=== PATIENT | female | born 1960 | race Caucasian/White ===

== ENCOUNTER 2022-12-25 23:44 | Inpatient (IN) | payer OTHER ==
[2022-12-25] MEDS ORDERED: AMIODARONE 50 MG/ML 3 ML VIAL IV ONE (23:46)
[2022-12-25] MEDS ORDERED: SODIUM BICARB 8.4% 50 ML SYR (1 MEQ/ML) ONE (23:46)
[2022-12-25] MEDS ORDERED: EPINEPHrine 10 ML SYRINGE (0.1 MG/ML) ONE (23:46)
[2022-12-25] MEDS ORDERED: METOPROLOL TARTRATE 5 MG/5 ML VIAL IVP ONE (23:46)
[2022-12-25] MEDS ORDERED: LIDOCAINE 2% SYG (PF) 100 MG/5 ML ONE (23:46)
[2022-12-25] MEDS ORDERED: DEXTROSE 5% IN WATER 50 ML BAG ONE (23:46)
[2022-12-25 23:59] LABS: Glucose,Whole Blood 219 mg/dL (70-110)
[2022-12-26] MEDS ORDERED: DEXTROSE 5% IN WATER 250 ML with AMIODARONE 300 MG IV ONE (00:13)
[2022-12-26] MEDS ORDERED: SODIUM CHLORIDE 0.9% 1,000 ML IV STA (00:14)
[2022-12-26] MEDS ORDERED: HEPARIN SODIUM 1,000 UN/ML (10ML VL) IV ONE ×2 (00:22→01:11)
[2022-12-26] MEDS ORDERED: ASPIRIN 300 MG SUPP RECTAL STA (00:22)
[2022-12-26] MEDS ORDERED: NITROGLYCERIN SL TABS 0.4 MG TAB SUBLINGUAL PRN ×2 (00:25→02:08)
--- NOTE | 2022-12-26 00:30 | ED ---
CPR HPI - General Stated Complaint: Chest pain Source: RN notes reviewed, old records reviewed Limitations: no limitations - History of Present Illness Initial Comments: This is a 62-year-old female to the emergency department for evaluation today. Patient's brought in for evaluation of cardiac arrest, patient walked in the fro nt of the hospital stay she is having heart attack and then became unresponsive patient is found to have asystolic arrest followed by ventricular fibrillation arrest. MD Complaint: found unresponsive, stopped breathing, collapsed during activity (Patient was walking into the emergency department saying she was having a heart attack) -: minute(s) Place: home (Chest pain began at home), other (Arrest happened in emergency d epartment) Bystander CPR Performed: Yes AED Applied by Bystander/Bottoming Machine Operator: Yes Shock Advised: Yes Number of Shocks Delivered: >3 Initial Findings in the Field: unresponsive, agonal, no pulse, VTACH/VFIB ROSC in the Field: No Associated Injuries: No Associated Symptoms: chest pain (Chest pain while walking into the emergency department) Treatments Prior to Arrival: other (0) - Related Data Home Medications Medication Instructions Recorded Confirmed No Known Home Medications 12/26/22 12/26/22 Allergies Allergy/AdvReac Type Severity Reaction Status Date / Time Unable to Assess Allergy Verified 12/26/22 00:31 Review of Systems ROS Statement: Those systems with pertinent positive or pertinent negative responses have been documented in the HPI. ROS Other: All systems not noted in ROS Statement are negative. General Exam General appearance: alert, in no apparent distress Head exam: Present: atraumatic, normocephalic, normal inspection Eye exam: Present: normal appearance, PERRL, EOMI. Absent: scleral icterus, conjunctival injection, periorbital swelling ENT exam: Present: normal exam, mucous membranes moist Neck exam: Present: normal inspection. Absent: tenderness, meningismus, lymphadenopathy Respiratory exam: Present: normal lung sounds bilaterally. Absent: respiratory distress, wheezes, rales, rhonchi, stridor Cardiovascular Exam: Present: regular rate, normal rhythm, normal heart sounds. Absent: systolic murmur, diastolic murmur, rubs, gallop, clicks GI/Abdominal exam: Present: soft, normal bowel sounds. Absent: distended, tenderness, guarding, rebound, rigid Extremities exam: Present: normal inspection, full ROM, normal capillary refill. Absent: tenderness, pedal edema, joint swelling, calf tenderness Back exam: Present: normal inspection Neurological exam: Present: alert, oriented X3, CN II-XII intact Psychiatric exam: Present: normal affect, normal mood Skin exam: Present: warm, dry, intact, normal color. Absent: rash Course Vital Signs 12/25/22 12/26/22 12/26/22 23:46 00:30 00:32 Pulse Rate 102 H Respiratory 18 Rate Blood Pressure 140/71 O2 Sat by Pulse 97 Oximetry Fraction of 100 100 Inspired Oxygen (FIO2) - Reevaluation(s) Reevaluation #1: 12/26/22 00:27 Medical records reviewed 12/26/22 00:28 STEMI was paged on initial return of normal rhythm found to have ST elevation after return of spontaneous circulation Reevaluation #2: 12/26/22 00:29 Patient symptoms remain significant, unresponsive Reevaluation #3: 12/26/22 00:29 did speak with patient's family regarding prognosis and significant illness Reevaluation #4: 12/26/22 00:27 Was pt. sent in by a medical professional or institution (, PA, SATURATOR TENDER, urgent care, hospital, or care home...) When possible be specific @ -no Did you speak to anyone other than the patient for history (EMS, parent, family, police, friend...)? What history was obtained from this source @ -no Did you review nursing and triage notes (agree or disagree)? Why? @ -agree Are old charts reviewed (outside hosp., previous admission, EMS record, old EKG, old radiological studies, urgent care reports/EKG's, care home records)? Report findings @ -yes Differential Diagnosis (chest pain, altered mental status, abdominal pain women, abdominal pain men, vaginal bleeding, weakness, fever, dyspnea, syncope, headache, dizziness, GI bleed, back pain, seizure, CVA, palpatations, mental hea lth, musculoskeletal)? @ -prior EKG interpreted by me (3pts min.). @ -yes X-rays interpreted by me (1pt min.). @ -yes CT interpreted by me (1pt min.). @ -no U/S interpreted by me (1pt. min.). @ -no What testing was considered but not performed or refused? (CT, X-rays, U/S, labs)? Why? @ -none What meds were considered but not given or refused? Why? @ -none Did you discuss the management of the patient with other professionals (professionals i.e. , PA, SATURATOR TENDER, lab, RT, psych nurse, home health care social worker, change management expert, teacher, strike operations officer, case management manager)? Give summary @ -no Was smoking cessation discussed for >3mins.? @ -no Was critical care preformed (if so, how long)? @ -no Were there social determinants of health that impacted care today? How? (Homelessness, low income, unemployed, alcoholism, drug addiction, transportation, low edu. Level, literacy, decrease access to med. care, mcc, r ehab)? @ -none Was there de-escalation of care discussed even if they declined (Discuss DNR or withdrawal of care, Hospice)? DNR status @ -no What co-morbidities impacted this encounter? (DM, HTN, Smoking, COPD, CAD, Cancer, CVA, ARF, Chemo, Hep., AIDS, mental health diagnosis, sleep apnea, morbid obesity)? @ -none Was patient admitted / discharged? Hospital course, mention meds given and route , prescriptions, significant lab abnormalities, going to OR and other pertinent info. @ - Undiagnosed new problem with uncertain prognosis? @ -no Drug Therapy requiring intensive monitoring for toxicity (Heparin, Nitro, Insulin, Cardizem)? @ -no Were any procedures done? @ -no Diagnosis/symptom? @ - Acute, or Chronic, or Acute on Chronic? @ -Acute Uncomplicated (without systemic symptoms) or Complicated (systemic symptoms)? @ -Complicated Side effects of treatment? @ -no Exacerbation, Progression, or Severe Exacerbation? @ -exacerbation Poses a threat to life or bodily function? How? (Chest pain, USA, HI, pneumonia, PE, COPD, DKA, ARF, appy, cholecystitis, CVA, Diverticulitis, Homicidal, Suicidal, threat to staff... and all critical care pts) @ -yes Reevaluation #5: 12/26/22 00:29 Differential Chest Pain: Stable Angina, Unstable Angina, STEMI, NSTEMI Aortic Dissection, Pneumothorax, Musculoskeletal, Esophageal Spasm GERD, Cholecystitis, Pancreatitis, Zoster, this is not meant to be an all-inclusive list. - Consultations Consultation #1: Spoke with [facility] were agrees to admit this patient Medical Decision Making - Medical Decision Making 62 female to the emergency department for evaluation patient came into the hospital with chest pain and was found to have sick cardiac arrest on arrival. Patient became unresponsive while checking in, patient was found be in ventricular fibrillation persistent requiring multiple defibrillations medication. Patient had return of spontaneous circulation with ST elevated HI on EKG - Lab Data Result diagrams: 12/26/22 14:25 12/26/22 10:55 Lab Results 12/25/22 Range/Units 23:59 POC Glucose (mg/dL) 219 H (70-110) mg/dL POC Glu Sales Outfitter ID Abelardo Muniz - EKG Data -: EKG Interpreted by Me (EKG shows ST elevation A. fib with RVR 122 QRS 157 QTC 316) Rate: tachycardia Interpretation: acute HI - Radiology Data Radiology results: report reviewed (Chest x-rays positive for ET tube placement), image reviewed Critical Care Time Critical Care Time: Yes Total Critical Care Time: 60 Disposition Clinical Impression: Cardiopulmonary arrest with successful resuscitation, Ventricular fibrillation, STEMI (ST elevation myocardial infarction) Disposition: ADMITTED IP TO THIS HOSP Condition: Critical Is patient prescribed a controlled substance at d/c from ED?: No Time of Disposition: 00:30
[2022-12-26] MEDS ORDERED: MIDAZOLAM 1 MG/ML 5 ML VIAL IV STA (00:40)
[2022-12-26 00:47] LABS: Basophils % (A) 0 %; Eosinophils # (A) 0.1 k/uL (0-0.7); Eosinophils % (A) 1 %; HGB 13.1 gm/dL (11.4-16.0); Hypochromasia Marked; Lymphocytes # (A) 4.9 k/uL (1.0-4.8); Lymphocytes % (A) 41 %; MCH 27.6 pg (25.0-35.0); MCHC 29.7 g/dL (31.0-37.0); Mean Platelet Volume 8.6; Monocytes # (A) 0.4 k/uL (0-1.0); Monocytes % (A) 3 %; Neutrophils # (A) 6.3 k/uL (1.3-7.7); Neutrophils % (A) 52 %; Platelet Count 197 k/uL (150-450); RBC 4.74 m/uL (3.80-5.40); RDW 12.5 % (11.5-15.5); WBC 12.1 k/uL (3.8-10.6)
[2022-12-26 00:54] LABS: ALT 27 U/L (4-34); AST 35 U/L (14-36); African American GFR (CKD) >90 (>60 ml/min/1.73 sqM); Albumin 2.6 g/dL (3.5-5.0); Alkaline Phosphatase 124 U/L (38-126); Anion Gap 18 mmol/L; Blood Urea Nitrogen 13 mg/dL (7-17); Calcium 10.9 mg/dL (8.4-10.2); Carbon Dioxide 15 mmol/L (22-30); Chloride 107 mmol/L (98-107); Glucose 348 mg/dL (74-99); Magnesium 3.3 mg/dL (1.6-2.3); Non-African American GFR(CKD) >90 (>60 ml/min/1.73 sqM); Sodium 140 mmol/L (137-145); Total Bilirubin 0.6 mg/dL (0.2-1.3); Total Protein 4.7 g/dL (6.3-8.2)
--- NOTE | 2022-12-26 00:57 | XR ---
EXAM: XR Chest, 1 View CLINICAL HISTORY: ITS.REASON XR Reason: cp TECHNIQUE: Frontal view of the chest. COMPARISON: No relevant prior studies available. FINDINGS: Endotracheal tube with seen with its tip above the eda. Esophageal catheter is seen with its tip in the gastric fundus. This is only barely beyond the gastroesophageal junction and could be advanced several centimeters. Diffuse bilateral interstitial infiltrates left slightly greater than right with cardiomegaly. Findings are most consistent with multifocal pneumonia. IMPRESSION: Multifocal pneumonia.
[2022-12-26 00:58] LABS: INR 1.1 (<1.2); Partial Thromboplastin Time 28.7 sec (22.0-30.0); Prothrombin Time 11.8 sec (10.0-12.5)
[2022-12-26 01:01] LABS: Phosphorus 9.1 mg/dL (2.5-4.5); Potassium 2.6 mmol/L (3.5-5.1)
[2022-12-26 01:02] LABS: NT-Pro-B-Type Natriuretic Pept 2600 pg/mL
[2022-12-26] MEDS ORDERED: SODIUM CHLORIDE 0.9% 500 ML 500 ML IV ONE (01:08)
[2022-12-26] MEDS ORDERED: LIDOCAINE 1% INJ 10MG/ML (30 ML VIAL-PF) SQ ONE (01:08)
[2022-12-26] MEDS ORDERED: POTASSIUM CHLORIDE 20 MEQ in WATER FOR INJECTION 1 100ML.BAG IVPB STA (01:09)
[2022-12-26] MEDS ORDERED: ATROPINE SULFATE 0.1 MG/ML 10ML SYRINGE IV ONE (01:09)
[2022-12-26] MEDS ORDERED: PRASUGREL 10 MG TAB PO ONE (01:10)
[2022-12-26] MEDS ORDERED: HEPARIN SODIUM 1,000 UN/ML (10ML VL) ONE (01:15)
[2022-12-26] MEDS ORDERED: AMIODARONE 360 MG in DEXTROSE 5% IN WATER 200 ML IV ONE ×2 (01:20)
[2022-12-26] MEDS ORDERED: PRASUGREL 10 MG TAB ONE ×2 (01:23→01:34)
--- NOTE | 2022-12-26 01:53 | P.CRDCN ---
History of Present Illness Consult date: 12/26/22 History of present illness: History of Present Illness: The patient is a 62-year-old female who presented to the emergency room brought in by her , having chest discomfort on arrival she had a cardiac arrest in the emergency room with recurrent ventricular tachycardia and ventricular fibrillation requiring multiple shocks and prolonged CPR. Subsequently rhythm was obtained and there was evidence of ST segment elevation inferiorly. The patient was intubated. She was evaluated in the cardiac catheterization laboratory. After her cardiac cath and according to the family she has a history of dyspnea on exertion but no cardiac history. She has no history of chest discomfort in the past. She has no history of hypertension, hyperlipidemia or diabetes. She is a smoker and stopped 2 months ago. She takes no medication. There is no history of alcohol intake. No other history is available from the family Medications: Non- Review of Systems: Could not be obtained Physical Examination: 62-year-old female intubated ,Blood pressure 80/70, Heart rate 70 Head: Normocephalic. Eyes: Sclerae nonicteric. Neck: Good carotid upstroke, no bruit, no jugular venous distention. Lungs: Clear to auscultation. Heart: Regular rate and rhythm, S1-S2, no S3, no rub. No murmur. Abdomen: Soft , positive bowel sounds no organomegaly. Extremities: No edema, intact distal pulses. Labs: WBC 12.1, hemoglobin 13.1, potassium 2.6, BUN 13, creatinine 0.62. Blood sugar 348. Troponin 0.318, NT proBNP 2600, chest x-ray suggestive of congestion as well as possible pneumonia, possible aspiration pneumonia EKG: Atrial fibrillation, with ST segment elevation in leads [address] segment depression Impression: 1. Cardiac arrest with recurrent ventricular tachycardia and ventricular fibrillation in the setting of myocardial infarction 2. Inferior wall myocardial infarction 3. Prior history of smoking 4. Possible aspiration pneumonia 5. Hypokalemia Plan: 1. I Have recommended to proceed with emergent cardiac catheterization 2. I discussed her case with her family after the procedure, the prognosis remains guarded. The possibility of anoxic encephalopathy cannot be excluded as well as aspiration pneumonia. 3. Obtain an echocardiogram with Doppler 4. Depending on her progress further recommendations will be made 5. Thank you for this consult we will follow with you Medications and Allergies Allergies Allergy/AdvReac Type Severity Reaction Status Date / Time Unable to Assess Allergy Verified 12/26/22 00:31 Physical Exam Vitals: Vital Signs Pulse Resp BP Pulse Ox FiO2 12/26/22 00:32 100 12/26/22 00:30 100 12/25/22 23:46 102 H 18 140/71 97 Intake and Output 12/25/22 12/25/22 12/26/22 14:59 22:59 05:59 Other: Weight 81.647 kg Results 12/26/22 00:33 12/26/22 00:33 Cardiac Enzymes 12/26/22 12/26/22 Range/Units 00:33 00:33 AST 35 (14-36) U/L Troponin I 0.318 H* (0.000-0.034) ng/mL Coagulation 12/26/22 Range/Units 00:33 PT 11.8 (10.0-12.5) sec APTT 28.7 (22.0-30.0) sec CBC 12/26/22 Range/Units 00:33 WBC 12.1 H (3.8-10.6) k/uL RBC 4.74 (3.80-5.40) m/uL Hgb 13.1 (11.4-16.0) gm/dL Hct 44.0 (34.0-46.0) % Plt Count 197 (150-450) k/uL Comprehensive Metabolic Panel 12/26/22 Range/Units 00:33 Sodium 140 (137-145) mmol/L Potassium 2.6 L* (3.5-5.1) mmol/L Chloride 107 (98-107) mmol/L Carbon Dioxide 15 L (22-30) mmol/L BUN 13 (7-17) mg/dL Creatinine 0.62 (0.52-1.04) mg/dL Glucose 348 H (74-99) mg/dL Calcium 10.9 H (8.4-10.2) mg/dL AST 35 (14-36) U/L ALT 27 (4-34) U/L Alkaline Phosphatase 124 (38-126) U/L Total Protein 4.7 L (6.3-8.2) g/dL Albumin 2.6 L (3.5-5.0) g/dL Current Medications Generic Name Dose Route Start Last Admin Trade Name Freq PRN Reason Stop Dose Admin Aspirin 325 mg 12/27/22 09:00 Aspirin 325 Mg Tab PO DAILY GIA Atorvastatin Calcium 80 mg 12/26/22 09:00 Atorvastatin 80 Mg Tab PO DAILY GIA Amiodarone HCl 360 mg/ 200 mls @ 33.333 mls/hr 12/26/22 01:20 EST Dextrose/Water IV 12/26/22 07:19 .Q6H ONE Protocol 1 MG/MIN Amiodarone HCl 450 mg/ 250 mls @ 16.667 mls/hr 12/26/22 07:20 Dextrose/Water IV 12/27/22 01:19 .Q15H GIA Protocol 0.5 MG/MIN Potassium Chloride 20 meq/ IV 100 mls @ 50 mls/hr 12/26/22 01:09 EST Solution IVPB 12/26/22 03:08 ONCE STA Metoprolol Tartrate 25 mg 12/26/22 09:00 Metoprolol Tartrate 25 Mg Tab PO BID GIA Nitroglycerin 0.4 mg 12/26/22 00:25 Nitroglycerin Sl Tabs 0.4 Mg Tab SUBLINGUAL Q5M PRN Chest Pain Intake and Output 12/25/22 12/25/22 12/26/22 14:59 22:59 05:59 Other: Weight 81.647 kg Patient Weight 12/26/22 05:59 Weight 81.647 kg 12/26/22 00:33 12/26/22 00:33
[2022-12-26] MEDS ORDERED: MIDAZOLAM 2 MG/2 ML VIAL IVP ONE (02:04)
[2022-12-26] MEDS: NOREPINEPHRINE 4 MG in SODIUM CHLORIDE 0.9% 250 ML IV SCH ×2 (02:05→09:42)
[2022-12-26] MEDS ORDERED: IOPAMIDOL-370 100ML BTL INJ ONE ×3 (02:05)
[2022-12-26 02:07] LABS: Glucose,Whole Blood 310 mg/dL (70-110)
--- NOTE | 2022-12-26 02:07 | P.CARDCATH ---
Date of Procedure: 12/26/22 Description of Procedure: Cardiac Catheterization: The patient is a 62-year-old female who presented with cardiac arrest with recurrent ventricle fibrillation and ventricle tachycardia requiring prolonged CPR. Her EKG showed ST segment elevation inferiorly. She was intubated. Recommendations were made regarding cardiac catheterization, Procedure Description: Patient was brought to clinical genetics laboratory chief intubated and sedated. Using Xylocaine Anesthesia and modified Seldinger technique, a 6-Belizean sheath with a mi cropuncture technique was introduced in the right femoral artery . Subsequently, selective coronary angiography was performed using a 6-Belizean 4 bend JR4 and FL4 guiding catheter. Multiple views of the coronary artery including hemiaxial views were obtained. The JR4 catheter was used to cross the aortic valve and LVEDP was calculated. PCI: After obtaining images of the left system using the FL 4 guiding catheter a 0.014 BMW J-wire was positioned in the distal OM1, subsequently a 2.5 x 12 mm Treck balloon was advanced and 2 inflations at 8 isabella were done. Subsequently a 2.5 X 23 mm Xience jaun point stent was deployed at 16 isabella, after removing the balloon a 2.5X18 millimeter Xience jaun point stent was deployed distal to the first one at 16 isabella subsequently after removing the balloon a Sonexa Therapeutic[employer] nulato eye IVUS catheter was introduced and images were obtained. Subsequently 3.5 x 12 mm NC Treck balloon was advanced into inflation in the proximal stent were done at 12 isabella. After removing the balloon a 2.25 x 12 mm Xience jaun point was deployed in the obtuse marginal branch distal to the stent at 14 isabella. After removing the balloon repeat IVUS imaging was performed, subsequently 4.0 x 12 mm Xience jaun point stent was deployed proximally at 14 isabella. There was recurrent haziness in the stent consistent with thrombus, at that time the patient was started on Aggrastat. Following that another 0.014 BMW J-wire was advanced into the distal left circumflex and a 2.5 x 12 mm Treck balloon was advanced into inflation at 8 isabella were done at the bifurcation. Following that the balloon and the wire were withdrawn and images were obtained and revealed stable successful stenting. Following that, catheter and sheath were removed. Hemostasis was obtained with deployment of an Angio-Seal . There was no immediate complication. Patient was returned to room in stable condition. Of note, the patient received a total of 4000 units of intravenous heparin as well as a loading dose of Effient. Patient had episodes of ventricular fibrillation during the procedure requiring cardioversion 1. She had bradycardia requiring IV atropine 1. She was hypotensive and was started on norepinephrine. At the end of the procedure there was resolution of her EKG changes and no further ventricular ectopic activity. Findings: Left main: This is a large size vessel, bifurcating into LAD and left circumflex, left main has no obstructive disease LAD: This is a large-size vessel, reaching to the apex, giving rise to a large proximal diagonal branch, the mid LAD after the takeoff of the diagonal branch has a 60% tubular lesion, the rest of the vessel has no high-grade stenosis Left circumflex: This vessel is totally occluded proximally with no antegrade flow RCA: This vessel is dominant and totally occluded proximally with bridging collaterals feeding the mid RCA with slow flow Left Ventriculogram: Not performed Hemodynamics: There was no gradient across the aortic valve , LVEDP was 20-24 mmHg Conclusion: 1. Acutely occluded proximal left circumflex 2. Chronically occluded proximal RCA 3. Moderate disease in the mid LAD 4. Successful stenting of the proximal left circumflex with reduction of stenosis from 100% to less than 5% with intravascular ultrasound imaging Recommendations: The patient will continue on aspirin and Effient for 1 year without any interruption in addition to aggressive coronary risks modification and attempt to maintain LDL below 70 mg/dL. Close follow-up of her neurological and pulmonary status will be done. Her prognosis remains guarded. The findings and the recommendations were discussed with family and they were in full understanding and agreement. Duration of sedation is 86 minutes.
[2022-12-26] MEDS ORDERED: ZOLPIDEM 5 MG TAB PO PRN (02:08)
[2022-12-26] MEDS ORDERED: ATROPINE SULFATE 0.1 MG/ML 10ML SYRINGE IV PRN (02:08)
[2022-12-26] MEDS ORDERED: RX INFO: IV CONTRAST WAS GIVEN 1 EACH MISC MISCELLANE PRN (02:08)
[2022-12-26] MEDS ORDERED: MAG HYDROX/AL HYDROX/SIMETH 30 ML CUP PO PRN (02:08)
[2022-12-26] MEDS ORDERED: AMIODARONE 50 MG/ML 3 ML VIAL IV ONE (02:09)
[2022-12-26] MEDS ORDERED: SODIUM BICARB 8.4% 50 ML SYR (1 MEQ/ML) ONE (02:09)
[2022-12-26] MEDS ORDERED: MAGNESIUM SULFATE SYG 4.06 MEQ/ML SYRINGE ONE (02:09)
[2022-12-26] MEDS ORDERED: EPINEPHrine 10 ML SYRINGE (0.1 MG/ML) ONE (02:09)
[2022-12-26] MEDS ORDERED: DEXTROSE 5% IN WATER 50 ML BAG ONE (02:09)
[2022-12-26] MEDS ORDERED: TIROFIBAN 12.5MG-250ML NS 250 ML IV SCH (02:15)
[2022-12-26] MEDS: SODIUM CHLORIDE 0.9% 1,000 ML in EMPTY BAG 1 BAG IV SCH ×2 (02:30→17:29)
[2022-12-26] MEDS ORDERED: POTASSIUM CHLORIDE 40 MEQ in WATER FOR INJECTION 1 100ML.BAG IVPB STA (02:32)
[2022-12-26] MEDS ORDERED: POTASSIUM CHLORIDE 20 MEQ in WATER FOR INJECTION 1 100ML.BAG IVPB SCH (02:45)
[2022-12-26] MEDS: POTASSIUM CHLORIDE 10 MEQ in WATER FOR INJECTION 1 100ML.BAG IVPB SCH ×4 (03:10→06:45)
[2022-12-26 03:19] LABS: African American GFR (CKD) 86 (>60 ml/min/1.73 sqM); Anion Gap 24 mmol/L; Blood Urea Nitrogen 15 mg/dL (7-17); Calcium 10.1 mg/dL (8.4-10.2); Carbon Dioxide 14 mmol/L (22-30); Chloride 105 mmol/L (98-107); Glucose 297 mg/dL (74-99); Non-African American GFR(CKD) 74 (>60 ml/min/1.73 sqM); Sodium 143 mmol/L (137-145)
--- NOTE | 2022-12-26 03:19 | P.EN ---
Code blue note Activated at 0209. Arrived at the scene shortly after. Chart reviewed in case discussed with the RN in detail. The patient who had presented to the emergency room with complaints of chest discomfort was diagnosed with non-ST elevation UT and taken to the cardiac nursery laborer where she underwent stenting of the left proximal circumflex. X-rays had revealed findings consistent with ARDS versus atypical pneumonia. The patient was intubated and transferred to the medical ICU. The patient had been persistently hypoxic while on 100% FiO2 on the ventilator. She was noted to develop bradycardia and subsequently asystole. ACLS protocol was initiated. She was given epinephrine IV push 2 and sodium bicarbonate IV push 1. She subsequently had ROSC at 0214. Repeat blood work was ordered with potassium replacement also ordered. Case discussed with family at the bedside. Primary team and tagman notified by RN. Time spent providing critical care for this patient: 35 minutess
[2022-12-26 03:29] LABS: Allen Test Performed? Yes
[2022-12-26 03:30] LABS: ABG Base Excess -15.7 mmol/L; ABG HCO3 16 mmol/L (21-25); ABG PCO2 75 mmHg (35-45); ABG PH 6.95 (7.35-7.45); ABG PO2 55 mmHg (83-108); ABG TCO2 19 mmol/L (19-24)
[2022-12-26 03:43] LABS: Potassium 3.3 mmol/L (3.5-5.1)
[2022-12-26] MEDS ORDERED: SODIUM CHLORIDE 0.9% 1,000 ML IV ONE (04:18)
[2022-12-26 04:19] LABS: HCT 45.5 % (34.0-46.0); HGB 13.7 gm/dL (11.4-16.0); Hypochromasia Marked; MCH 27.9 pg (25.0-35.0); MCHC 30.1 g/dL (31.0-37.0); MCV 92.6 fL (80.0-100.0); Platelet Count 331 k/uL (150-450); RBC 4.92 m/uL (3.80-5.40); RDW 12.7 % (11.5-15.5); WBC 29.3 k/uL (3.8-10.6)
[2022-12-26] MEDS ORDERED: SODIUM BICARB 8.4% 50 ML SYR (1 MEQ/ML) IV STA ×6 (04:29→14:42)
[2022-12-26] MEDS ORDERED: VASOPRESSIN 20 UNIT in SODIUM CHLORIDE 0.9% 50 ML IV SCH (04:30)
[2022-12-26] MEDS ORDERED: PIPERACILLIN-TAZOBACTAM 3.375 GM in SODIUM CHLORIDE 0.9% 100 ML IVPB SCH ×2 (05:00→12:00)
[2022-12-26 06:35] LABS: ABG Base Excess -14.2 mmol/L; ABG HCO3 14 mmol/L (21-25); ABG Oxygen Saturation 98.4 % (94-97); ABG PCO2 38 mmHg (35-45); ABG PO2 145 mmHg (83-108); ABG TCO2 15 mmol/L (19-24); Allen Test Performed? Yes
[2022-12-26 06:40] LABS: ABG PH 7.18 (7.35-7.45)
[2022-12-26 06:58] LABS: Band Neutrophils % 14 %; Eosinophils # (M) 0.29 k/uL (0-0.7); Lymphocytes # (M) 2.64 k/uL (1.0-4.8); Monocytes # (M) 0.59 k/uL (0-1.0); Neutrophils % (M) 74 %; Nucleated Red Blood Cells 0 /100 WBC (0-0); RBC Morphology Normal; Total Cells Counted 100
[2022-12-26] MEDS ORDERED: AMIODARONE 450 MG in DEXTROSE 5% IN WATER 250 ML IV SCH ×2 (07:20)
--- NOTE | 2022-12-26 07:45 | XR ---
EXAM: XR chest 1V portable CLINICAL INDICATION:Female, 62 years old with history of Intubated/PNA; [facility] COMPARISON: 12/26/2022 12:37 AM TECHNIQUE: Chest single view. FINDINGS: Lines/tubes/devices: ET tube about 1.3 cm above the eda. NG/OG tube with its tip in the left upper quadrant likely over the proximal stomach but the sidehole appears above the GE junction. EKG leads overlie the chest. Cardiomediastinum: Cardiac silhouette appears stable, heart appears mildly enlarged Unremarkable mediastinal silhouette. Vasculature: Possible mild vascular congestion. Lungs/pleura: Multifocal patchy consolidative and interstitial opacities throughout both lungs, similar to the prio r study. Limited assessment in the supine position, however there may be a small to moderate pneumoth orax on the right. Layering pleural effusion is not excluded. Bones/soft tissues: Osseous structures appear grossly unchanged. Mildly displaced fracture of the lateral right third rib . Regional soft tissues appear unremarkable. IMPRESSION: 1. ET tube 1.3 cm above the eda. Recommend retraction 1 or 2 cm for more optimal positioning. 2. NG tube with sidehole above the GE junction. Recommend several centimeters of additional advancem ent. 3. Multifocal bilateral pulmonary opacities, likely pneumonia, similar to prior. 4. Possible right pneumothorax. Recommend close follow-up, this may include CT chest for better asse ssment.
[2022-12-26 07:49] LABS: Basophils # (A) 0.1 k/uL (0-0.2); Basophils % (A) 0 %; Eosinophils # (A) 0.1 k/uL (0-0.7); Eosinophils % (A) 0 %; HCT 46.4 % (34.0-46.0); HGB 13.8 gm/dL (11.4-16.0); Hypochromasia Marked; Lymphocytes # (A) 1.5 k/uL (1.0-4.8); Lymphocytes % (A) 6 %; MCH 28.1 pg (25.0-35.0); MCHC 29.8 g/dL (31.0-37.0); MCV 94.2 fL (80.0-100.0); Mean Platelet Volume 8.7; Monocytes # (A) 1.1 k/uL (0-1.0); Monocytes % (A) 4 %; Neutrophils # (A) 24.5 k/uL (1.3-7.7); Neutrophils % (A) 89 %; Platelet Count 305 k/uL (150-450); RBC 4.93 m/uL (3.80-5.40); RDW 13.1 % (11.5-15.5); WBC 27.5 k/uL (3.8-10.6)
[2022-12-26 08:20] LABS: African American GFR (CKD) 55 (>60 ml/min/1.73 sqM); Anion Gap 24 mmol/L; Blood Urea Nitrogen 20 mg/dL (7-17); Carbon Dioxide 10 mmol/L (22-30); Chloride 108 mmol/L (98-107); Glucose 257 mg/dL (74-99); Non-African American GFR(CKD) 48 (>60 ml/min/1.73 sqM); Sodium 142 mmol/L (137-145)
[2022-12-26 08:20] LABS: ABG Base Excess -10.2 mmol/L; ABG HCO3 17 mmol/L (21-25); ABG PCO2 40 mmHg (35-45); ABG PH 7.24 (7.35-7.45); ABG PO2 103 mmHg (83-108); ABG TCO2 19 mmol/L (19-24); Allen Test Performed? Yes
[2022-12-26] MEDS: CISATRACURIUM 2 MG/ML 5 ML VIAL IV ONE ×2 (08:23→11:15)
[2022-12-26] MEDS ORDERED: ASPIRIN 81 MG PO SCH (09:00)
[2022-12-26] MEDS ORDERED: ATORVASTATIN 80 MG TAB PO SCH (09:00)
[2022-12-26] MEDS ORDERED: METOPROLOL TARTRATE 25 MG TAB PO SCH (09:00)
[2022-12-26] MEDS ORDERED: PANTOPRAZOLE 40 MG/10 ML VIAL IVP SCH (09:00)
[2022-12-26] MEDS ORDERED: CHLORHEXIDINE GLUCONATE 15 ML CUP MUCOUS MEM SCH (09:00)
[2022-12-26 09:01] LABS: Glucose,Whole Blood 292 mg/dL (70-110)
--- NOTE | 2022-12-26 09:20 | P.HPIM ---
History of Present Illness Patient is a 62-year-old female came to emergency department with the chest discomfort and ended up having cardiac respiratory arrest has to be resuscitated patient was in atrial fibrillation and ventricular tachycardia and found to have ST elevations and patient was diagnosed with ST elevation microinfarction which resulted in cardiac arrest, patient was taken to [facility] found to have acute occlusion of the circumflex and a chronic occlusion of RCA. 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 Patient is presently intubated 2 pressors, amiodarone, receiving IV fluids, patient has diffuse pulmonary edema. Patient is on medications to support. Patient just received Pneumovax. But patient does have intact brain stem reflexes and before Nimbex patient was moving all her limbs. Patient urine output is around 30 mL per hour dark urine patient creatinine although did go up to 1.3 from normal. REVIEW OF SYSTEMS: Patient is intubated PHYSICAL EXAMINATION: GENERAL: The patient is intubated sedated on propofol HEENT: Pupils are round and equally reacting to light. EOMI. No scleral icterus. No conjunctival pallor. Normocephalic, atraumatic. No pharyngeal erythema. No thyromegaly. CARDIOVASCULAR: S1 and S2 present. No murmurs, rubs, or gallops. PULMONARY: Chest is clear to auscultation, no wheezing or crackles. ABDOMEN: Soft, nontender, nondistended, normoactive bowel sounds. No palpable organomegaly. MUSCULOSKELETAL: No joint swelling or deformity. EXTREMITIES: No cyanosis, clubbing, or pedal edema. NEUROLOGICAL: Patient had brainstem reflexes intact before Nimbex SKIN: No rashes. Assessment and plan -Acute non-ST elevation myocardial infarction resulting in cardiac arrest: Patient is status post cardiac catheterization and stenting, patient is being continued on IV heparin and IV amiodarone and IV pressor support -Cardio respiratory arrest, V. tach and V. fib secondary to myocardial in farction -Cardio any shock resulting in pulmonary edema patient is presently emphasis actually received IV fluids Line-lactic acidosis secondary to shock. Patient is on empiric antibiotic as per critical care -Acute renal failure probably due to acute tubular necrosis from hypotension and cardiogenic shock necrosis expect kidney function worsening before it improves -Acute heart failure exacerbation probably systolic dysfunction secondary to microinfarction once her blood pressure stabilizes will need Lasix patient is presently receiving IV fluids and on pressor support -Acute hypoxic respiratory failure: Secondary to pulmonary edema, myocardial infarction Leukocytosis with the highly elevated white blood cell count secondary to myocardial infarction -Metabolic and respiratory acidosis and lactic acidosis and a CO2 retention from myocardial infarction and cardiac respiratory arrest presently improving DVT prophylaxis: On heparin Past Medical History Past Medical History: No Reported History History of Any Multi-Drug Resistant Organisms: Unobtainable Past Surgical History: Hysterectomy, Tonsillectomy Past Anesthesia/Blood Transfusion Reactions: Unable to Obtain Past Psychological History: No Psychological Hx Reported Smoking Status: Former smoker Past Alcohol Use History: None Reported Past Drug Use History: None Reported Medications and Allergies Allergies Allergy/AdvReac Type Severity Reaction Status Date / Time Unable to Assess Allergy Verified 12/26/22 00:31 Physical Exam Vitals: Vital Signs Temp Pulse Resp BP BP Pulse Ox FiO2 12/26/22 09:00 98 3 L 124/39 97 12/26/22 08:50 98 9 L 124/39 96 12/26/22 08:40 98 36 H 107/64 97 12/26/22 08:36 90 12/26/22 08:30 92 36 H 101/80 12/26/22 08:20 90 36 H 101/80 95 12/26/22 08:10 85 36 H 115/76 95 12/26/22 08:00 99.3 F 79 36 H 108/61 38 L 100 12/26/22 07:50 80 23 108/61 97 12/26/22 07:40 84 28 H 116/60 97 12/26/22 07:30 86 24 134/83 96 12/26/22 07:20 90 28 H 134/83 96 12/26/22 07:10 76 36 H 89/46 96 12/26/22 07:00 61 21 92/46 12/26/22 06:50 69 25 H 92/46 96 12/26/22 06:40 73 37 H 88/51 97 12/26/22 06:30 62 23 103/50 12/26/22 06:20 70 24 103/50 96 12/26/22 06:10 60 39 H 107/79 95 12/26/22 06:00 89 35 H 88/60 96 12/26/22 05:50 86 26 H 88/60 97 12/26/22 05:40 62 24 105/61 96 12/26/22 05:30 85 36 H 104/55 12/26/22 05:20 64 36 H 104/55 97 12/26/22 05:10 66 38 H 111/48 97 12/26/22 05:00 91 35 H 86/27 12/26/22 04:50 64 35 H 82/43 95 12/26/22 04:40 69 36 H 83/66 95 12/26/22 04:30 69 48 H 86/50 12/26/22 04:20 70 36 H 86/50 92 L 12/26/22 04:10 71 56 H 91/69 92 L 12/26/22 04:00 98.3 F 70 34 H 87/56 90 L 100 12/26/22 03:50 70 57 H 87/56 90 L 12/26/22 03:43 100 12/26/22 03:40 69 45 H 85/54 91 L 12/26/22 03:30 69 36 H 68/22 91 L 12/26/22 03:20 71 31 H 74/27 12/26/22 03:10 75 49 H 81/47 88 L 12/26/22 03:00 98.3 F 75 26 H 87/59 89 L 100 12/26/22 02:57 74 43 H 88 L 12/26/22 02:52 85/50 12/26/22 02:49 81/33 12/26/22 02:42 84/36 12/26/22 02:39 47/25 12/26/22 02:34 93/46 12/26/22 00:32 100 12/26/22 00:30 100 12/25/22 23:46 102 H 18 140/71 97 Intake and Output 12/25/22 12/26/22 12/26/22 23:59 06:59 14:59 Intake Total Output Total 90 Balance -90 Intake: IV Potassium Chloride 10 meq In Water For Injection 1 100ml.bag @ 100 mls/hr IVPB Q1HR [facility] Rx#: [id number] Sodium Chloride 0.9% 1, 000 ml @ 999 mls/hr IV . Q1H1M [facility] Rx#:[id number] Intake, IV Titration Amount Norepinephrine 4 mg In Sodium Chloride 0.9% 250 ml @ 0.03 MCG/KG/MIN 9. 332 mls/hr IV .Q24H [facility] Rx#:[id number] propofoL 1,000 mg In Empty Bag 1 bag @ 15 MCG/ KG/MIN 7.348 mls/hr IV . [id number] [facility] Rx#:[id number] Output: Urine 90 Other: Voiding Method Indwelling Catheter Weight ABP, PAP, CO, CI - Last 8 Hours Arterial Blood Pressure 98/59 Arterial Blood Pressure 93/55 Arterial Blood Pressure 110/58 Arterial Blood Pressure 87/50 Arterial Blood Pressure 89/45 Arterial Blood Pressure 100/41 Results CBC & Chem 7: 12/26/22 07:01 12/26/22 06:53 Labs: Abnormal Lab Results - Last 24 Hours (Table) 12/25/22 12/26/22 12/26/22 Range/Units 23:59 00:33 00:33 WBC 12.1 H (3.8-10.6) k/uL Hct (34.0-46.0) % MCHC 29.7 L (31.0-37.0) g/dL Neutrophils # (1.3-7.7) k/uL Neutrophils # (Manual) (1.3-7.7) k/uL Lymphocytes # 4.9 H (1.0-4.8) k/uL Monocytes # (0-1.0) k/uL APTT (22.0-30.0) sec ABG pH (7.35-7.45) ABG pCO2 (35-45) mmHg ABG pO2 (83-108) mmHg ABG HCO3 (21-25) mmol/L ABG Total CO2 (19-24) mmol/L ABG O2 Saturation (94-97) % Potassium 2.6 L* (3.5-5.1) mmol/L Chloride (98-107) mmol/L Carbon Dioxide 15 L (22-30) mmol/L BUN (7-17) mg/dL Creatinine (0.52-1.04) mg/dL Glucose 348 H (74-99) mg/dL POC Glucose (mg/dL) 219 H (70-110) mg/dL Plasma Lactic Acid Joaquin (0.7-2.0) mmol/L Calcium 10.9 H (8.4-10.2) mg/dL Phosphorus 9.1 H* (2.5-4.5) mg/dL Magnesium 3.3 H (1.6-2.3) mg/dL Troponin I (0.000-0.034) ng/mL Total Protein 4.7 L (6.3-8.2) g/dL Albumin 2.6 L (3.5-5.0) g/dL 12/26/22 12/26/22 12/26/22 Range/Units 00:33 00:33 01:00 EST WBC (3.8-10.6) k/uL Hct (34.0-46.0) % MCHC (31.0-37.0) g/dL Neutrophils # (1.3-7.7) k/uL Neutrophils # (Manual) (1.3-7.7) k/uL Lymphocytes # (1.0-4.8) k/uL Monocytes # (0-1.0) k/uL APTT (22.0-30.0) sec ABG pH 6.95 L* (7.35-7.45) ABG pCO2 75 H* (35-45) mmHg ABG pO2 55 L* (83-108) mmHg ABG HCO3 16 L (21-25) mmol/L ABG Total CO2 (19-24) mmol/L ABG O2 Saturation 67.0 L (94-97) % Potassium (3.5-5.1) mmol/L Chloride (98-107) mmol/L Carbon Dioxide (22-30) mmol/L BUN (7-17) mg/dL Creatinine (0.52-1.04) mg/dL Glucose (74-99) mg/dL POC Glucose (mg/dL) (70-110) mg/dL Plasma Lactic Acid Joaquin 11.2 H* (0.7-2.0) mmol/L Calcium (8.4-10.2) mg/dL Phosphorus (2.5-4.5) mg/dL Magnesium (1.6-2.3) mg/dL Troponin I 0.318 H* (0.000-0.034) ng/mL Total Protein (6.3-8.2) g/dL Albumin (3.5-5.0) g/dL 12/26/22 12/26/22 12/26/22 Range/Units 02:04 02:42 02:42 WBC (3.8-10.6) k/uL Hct (34.0-46.0) % MCHC (31.0-37.0) g/dL Neutrophils # (1.3-7.7) k/uL Neutrophils # (Manual) (1.3-7.7) k/uL Lymphocytes # (1.0-4.8) k/uL Monocytes # (0-1.0) k/uL APTT 73.0 H (22.0-30.0) sec ABG pH (7.35-7.45) ABG pCO2 (35-45) mmHg ABG pO2 (83-108) mmHg ABG HCO3 (21-25) mmol/L ABG Total CO2 (19-24) mmol/L ABG O2 Saturation (94-97) % Potassium (3.5-5.1) mmol/L Chloride (98-107) mmol/L Carbon Dioxide (22-30) mmol/L BUN (7-17) mg/dL Creatinine (0.52-1.04) mg/dL Glucose (74-99) mg/dL POC Glucose (mg/dL) 310 H (70-110) mg/dL Plasma Lactic Acid Joaquin (0.7-2.0) mmol/L Calcium (8.4-10.2) mg/dL Phosphorus (2.5-4.5) mg/dL Magnesium (1.6-2.3) mg/dL Troponin I 10.300 H* (0.000-0.034) ng/mL Total Protein (6.3-8.2) g/dL Albumin (3.5-5.0) g/dL 12/26/22 12/26/22 12/26/22 Range/Units 02:42 02:42 02:42 WBC 29.3 H (3.8-10.6) k/uL Hct (34.0-46.0) % MCHC 30.1 L (31.0-37.0) g/dL Neutrophils # (1.3-7.7) k/uL Neutrophils # (Manual) 25.70 H (1.3-7.7) k/uL Lymphocytes # (1.0-4.8) k/uL Monocytes # (0-1.0) k/uL APTT (22.0-30.0) sec ABG pH (7.35-7.45) ABG pCO2 (35-45) mmHg ABG pO2 (83-108) mmHg ABG HCO3 (21-25) mmol/L ABG Total CO2 (19-24) mmol/L ABG O2 Saturation (94-97) % Potassium 3.3 L (3.5-5.1) mmol/L Chloride (98-107) mmol/L Carbon Dioxide 14 L (22-30) mmol/L BUN (7-17) mg/dL Creatinine (0.52-1.04) mg/dL Glucose 297 H (74-99) mg/dL POC Glucose (mg/dL) (70-110) mg/dL Plasma Lactic Acid Joaquin 11.9 H* (0.7-2.0) mmol/L Calcium (8.4-10.2) mg/dL Phosphorus (2.5-4.5) mg/dL Magnesium (1.6-2.3) mg/dL Troponin I (0.000-0.034) ng/mL Total Protein (6.3-8.2) g/dL Albumin (3.5-5.0) g/dL 12/26/22 12/26/22 12/26/22 Range/Units 05:29 05:56 06:13 WBC (3.8-10.6) k/uL Hct (34.0-46.0) % MCHC (31.0-37.0) g/dL Neutrophils # (1.3-7.7) k/uL Neutrophils # (Manual) (1.3-7.7) k/uL Lymphocytes # (1.0-4.8) k/uL Monocytes # (0-1.0) k/uL APTT (22.0-30.0) sec ABG pH 7.18 L* (7.35-7.45) ABG pCO2 (35-45) mmHg ABG pO2 145 H (83-108) mmHg ABG HCO3 14 L (21-25) mmol/L ABG Total CO2 15 L (19-24) mmol/L ABG O2 Saturation 98.4 H (94-97) % Potassium (3.5-5.1) mmol/L Chloride (98-107) mmol/L Carbon Dioxide (22-30) mmol/L BUN (7-17) mg/dL Creatinine (0.52-1.04) mg/dL Glucose (74-99) mg/dL POC Glucose (mg/dL) (70-110) mg/dL Plasma Lactic Acid Joaquin 11.2 H* (0.7-2.0) mmol/L Calcium (8.4-10.2) mg/dL Phosphorus (2.5-4.5) mg/dL Magnesium (1.6-2.3) mg/dL Troponin I 10.500 H* (0.000-0.034) ng/mL Total Protein (6.3-8.2) g/dL Albumin (3.5-5.0) g/dL 12/26/22 12/26/22 12/26/22 Range/Units 06:53 07:01 08:17 WBC 27.5 H (3.8-10.6) k/uL Hct 46.4 H (34.0-46.0) % MCHC 29.8 L (31.0-37.0) g/dL Neutrophils # 24.5 H (1.3-7.7) k/uL Neutrophils # (Manual) (1.3-7.7) k/uL Lymphocytes # (1.0-4.8) k/uL Monocytes # 1.1 H (0-1.0) k/uL APTT (22.0-30.0) sec ABG pH 7.24 L (7.35-7.45) ABG pCO2 (35-45) mmHg ABG pO2 (83-108) mmHg ABG HCO3 17 L (21-25) mmol/L ABG Total CO2 (19-24) mmol/L ABG O2 Saturation (94-97) % Potassium (3.5-5.1) mmol/L Chloride 108 H (98-107) mmol/L Carbon Dioxide 10 L (22-30) mmol/L BUN 20 H (7-17) mg/dL Creatinine 1.21 H (0.52-1.04) mg/dL Glucose 257 H (74-99) mg/dL POC Glucose (mg/dL) (70-110) mg/dL Plasma Lactic Acid Joaquin (0.7-2.0) mmol/L Calcium (8.4-10.2) mg/dL Phosphorus (2.5-4.5) mg/dL Magnesium (1.6-2.3) mg/dL Troponin I (0.000-0.034) ng/mL Total Protein (6.3-8.2) g/dL Albumin (3.5-5.0) g/dL 12/26/22 Range/Units 09:00 WBC (3.8-10.6) k/uL Hct (34.0-46.0) % MCHC (31.0-37.0) g/dL Neutrophils # (1.3-7.7) k/uL Neutrophils # (Manual) (1.3-7.7) k/uL Lymphocytes # (1.0-4.8) k/uL Monocytes # (0-1.0) k/uL APTT (22.0-30.0) sec ABG pH (7.35-7.45) ABG pCO2 (35-45) mmHg ABG pO2 (83-108) mmHg ABG HCO3 (21-25) mmol/L ABG Total CO2 (19-24) mmol/L ABG O2 Saturation (94-97) % Potassium (3.5-5.1) mmol/L Chloride (98-107) mmol/L Carbon Dioxide (22-30) mmol/L BUN (7-17) mg/dL Creatinine (0.52-1.04) mg/dL Glucose (74-99) mg/dL POC Glucose (mg/dL) 292 H (70-110) mg/dL Plasma Lactic Acid Joaquin (0.7-2.0) mmol/L Calcium (8.4-10.2) mg/dL Phosphorus (2.5-4.5) mg/dL Magnesium (1.6-2.3) mg/dL Troponin I (0.000-0.034) ng/mL Total Protein (6.3-8.2) g/dL Albumin (3.5-5.0) g/dL Thrombosis Risk Factor Assmnt - Choose All That Apply Each Factor Represents 1 point: Obesity (BMI >25) Other Risk Factors: Yes Each Risk Factor Represents 2 Points: Age 61-74 years Other congenital or acquired thrombophilia - If yes, enter type in comment: No Thrombosis Risk Factor Assessment Total Risk Factor Score: 3 Thrombosis Risk Factor Assessment Level: Moderate Risk
--- NOTE | 2022-12-26 09:39 | P.PN ---
Subjective Progress Note Date: 12/26/22 PROGRESS NOTE The patient is a 62-year-old female who presented to the emergency room brought in by her , having chest discomfort on arrival she had a cardiac arrest in the emergency room with recurrent ventricular tachycardia and ventricular fibrillation requiring multiple shocks and prolonged CPR. Subsequently rhythm was obtained and there was evidence of ST segment elevation inferiorly. The patient was intubated. She was evaluated in the cardiac catheterization laboratory. After her cardiac cath and according to the family she has a history of dyspnea on exertion but no cardiac history. She has no history of chest discomfort in the past. She has no history of hypertension, hyperlip idemia or diabetes. She is a smoker and stopped 2 months ago. She takes no medication. There is no history of alcohol intake. No other history is available from the family The patient remains intubated, in sinus mechanism, no further episode of ventricle tachycardia. Upon transfer to the ICU she had an episode of severe bradycardia the subsequently resolved. She is on norepinephrine and vaso pressin. Her urinary output is low. She continues to be on Aggrastat. Her oxygenation is better. Her chest x-ray is suggestive of CHF and probable aspiration. She continues to be on IV amiodarone. Medications: Aspirin, Effient 10 mg daily, Lipitor 80 mg daily, metoprolol 25 mg twice a day, norepinephrine, vasopressin, IV amiodarone PHYSICAL EXAMINATION: Intubated and sedated Blood pressure 124/40 heart rate 90 LUNGS: Clear to auscultation anteriorly HEART: Regular rate and rhythm, S1, S2. No S3. No systolic murmur ABDOMEN: Soft, nontender, no organomegaly EXTREMETIES: No edema, right groin no hematoma, venous axis noted LAB: WBC 27.5, hemoglobin 13.8, pH 7.24, pCO2 40, pO2 103. Potassium 5.0. BUN 20, creatinine 1.21. Chest x-ray with no significant changes with bilateral infiltrate could be a combination of CHF and aspiration IMPRESSION: 1. Acute inferior wall STEMI 2. Cardiac arrest with recurrent VT and V. fib requiring multiple cardioversion 3. Respiratory failure, mechanical ventilation 4. Acute renal injury 5. History of tobacco use PLAN: 1. Obtain an echocardiogram with Doppler 2. Follow renal functions closely 3. Antibiotics treatment for pulmonary service 4. May require diuresis 5. Prognosis is guarded, depending on her progress further recommendations will be made. Objective - Vital Signs Vital signs: Vital Signs Temp 99.3 F 12/26/22 08:00 Pulse 98 12/26/22 09:00 Resp 3 L 12/26/22 09:00 BP 124/39 12/26/22 09:00 Pulse Ox 97 12/26/22 09:00 FiO2 90 12/26/22 08:36 Intake & Output 12/25/22 12/26/22 12/26/22 19:59 06:59 18:59 Intake Total Output Total 90 Balance -90 Weight Intake: IV Potassium Chloride 10 meq In Water For Injection 1 100ml.bag @ 100 mls/hr IVPB Q1HR [facility] Rx#: [id number] Sodium Chloride 0.9% 1, 000 ml @ 999 mls/hr IV . Q1H1M [facility] Rx#:[id number] Intake, IV Titration Amount Norepinephrine 4 mg In Sodium Chloride 0.9% 250 ml @ 0.03 MCG/KG/MIN 9. 332 mls/hr IV .Q24H [facility] Rx#:[id number] propofoL 1,000 mg In Empty Bag 1 bag @ 15 MCG/ KG/MIN 7.348 mls/hr IV . [id number] [facility] Rx#:[id number] Output: Urine 90 Other: Voiding Method Indwelling Catheter ABP, PAP, CO, CI - Last Documented Arterial Blood Pressure 98/59 - Labs CBC & Chem 7: 12/26/22 07:01 12/26/22 06:53 Labs: Abnormal Lab Results - Last 24 Hours (Table) 12/25/22 12/26/22 12/26/22 Range/Units 23:59 00:33 00:33 WBC 12.1 H (3.8-10.6) k/uL Hct (34.0-46.0) % MCHC 29.7 L (31.0-37.0) g/dL Neutrophils # (1.3-7.7) k/uL Neutrophils # (Manual) (1.3-7.7) k/uL Lymphocytes # 4.9 H (1.0-4.8) k/uL Monocytes # (0-1.0) k/uL APTT (22.0-30.0) sec ABG pH (7.35-7.45) ABG pCO2 (35-45) mmHg ABG pO2 (83-108) mmHg ABG HCO3 (21-25) mmol/L ABG Total CO2 (19-24) mmol/L ABG O2 Saturation (94-97) % Potassium 2.6 L* (3.5-5.1) mmol/L Chloride (98-107) mmol/L Carbon Dioxide 15 L (22-30) mmol/L BUN (7-17) mg/dL Creatinine (0.52-1.04) mg/dL Glucose 348 H (74-99) mg/dL POC Glucose (mg/dL) 219 H (70-110) mg/dL Plasma Lactic Acid Joaquin (0.7-2.0) mmol/L Calcium 10.9 H (8.4-10.2) mg/dL Phosphorus 9.1 H* (2.5-4.5) mg/dL Magnesium 3.3 H (1.6-2.3) mg/dL Troponin I (0.000-0.034) ng/mL Total Protein 4.7 L (6.3-8.2) g/dL Albumin 2.6 L (3.5-5.0) g/dL 12/26/22 12/26/22 12/26/22 Range/Units 00:33 00:33 01:00 EST WBC (3.8-10.6) k/uL Hct (34.0-46.0) % MCHC (31.0-37.0) g/dL Neutrophils # (1.3-7.7) k/uL Neutrophils # (Manual) (1.3-7.7) k/uL Lymphocytes # (1.0-4.8) k/uL Monocytes # (0-1.0) k/uL APTT (22.0-30.0) sec ABG pH 6.95 L* (7.35-7.45) ABG pCO2 75 H* (35-45) mmHg ABG pO2 55 L* (83-108) mmHg ABG HCO3 16 L (21-25) mmol/L ABG Total CO2 (19-24) mmol/L ABG O2 Saturation 67.0 L (94-97) % Potassium (3.5-5.1) mmol/L Chloride (98-107) mmol/L Carbon Dioxide (22-30) mmol/L BUN (7-17) mg/dL Creatinine (0.52-1.04) mg/dL Glucose (74-99) mg/dL POC Glucose (mg/dL) (70-110) mg/dL Plasma Lactic Acid Joaquin 11.2 H* (0.7-2.0) mmol/L Calcium (8.4-10.2) mg/dL Phosphorus (2.5-4.5) mg/dL Magnesium (1.6-2.3) mg/dL Troponin I 0.318 H* (0.000-0.034) ng/mL Total Protein (6.3-8.2) g/dL Albumin (3.5-5.0) g/dL 12/26/22 12/26/22 12/26/22 Range/Units 02:04 02:42 02:42 WBC (3.8-10.6) k/uL Hct (34.0-46.0) % MCHC (31.0-37.0) g/dL Neutrophils # (1.3-7.7) k/uL Neutrophils # (Manual) (1.3-7.7) k/uL Lymphocytes # (1.0-4.8) k/uL Monocytes # (0-1.0) k/uL APTT 73.0 H (22.0-30.0) sec ABG pH (7.35-7.45) ABG pCO2 (35-45) mmHg ABG pO2 (83-108) mmHg ABG HCO3 (21-25) mmol/L ABG Total CO2 (19-24) mmol/L ABG O2 Saturation (94-97) % Potassium (3.5-5.1) mmol/L Chloride (98-107) mmol/L Carbon Dioxide (22-30) mmol/L BUN (7-17) mg/dL Creatinine (0.52-1.04) mg/dL Glucose (74-99) mg/dL POC Glucose (mg/dL) 310 H (70-110) mg/dL Plasma Lactic Acid Joaquin (0.7-2.0) mmol/L Calcium (8.4-10.2) mg/dL Phosphorus (2.5-4.5) mg/dL Magnesium (1.6-2.3) mg/dL Troponin I 10.300 H* (0.000-0.034) ng/mL Total Protein (6.3-8.2) g/dL Albumin (3.5-5.0) g/dL 12/26/22 12/26/22 12/26/22 Range/Units 02:42 02:42 02:42 WBC 29.3 H (3.8-10.6) k/uL Hct (34.0-46.0) % MCHC 30.1 L (31.0-37.0) g/dL Neutrophils # (1.3-7.7) k/uL Neutrophils # (Manual) 25.70 H (1.3-7.7) k/uL Lymphocytes # (1.0-4.8) k/uL Monocytes # (0-1.0) k/uL APTT (22.0-30.0) sec ABG pH (7.35-7.45) ABG pCO2 (35-45) mmHg ABG pO2 (83-108) mmHg ABG HCO3 (21-25) mmol/L ABG Total CO2 (19-24) mmol/L ABG O2 Saturation (94-97) % Potassium 3.3 L (3.5-5.1) mmol/L Chloride (98-107) mmol/L Carbon Dioxide 14 L (22-30) mmol/L BUN (7-17) mg/dL Creatinine (0.52-1.04) mg/dL Glucose 297 H (74-99) mg/dL POC Glucose (mg/dL) (70-110) mg/dL Plasma Lactic Acid Joaquin 11.9 H* (0.7-2.0) mmol/L Calcium (8.4-10.2) mg/dL Phosphorus (2.5-4.5) mg/dL Magnesium (1.6-2.3) mg/dL Troponin I (0.000-0.034) ng/mL Total Protein (6.3-8.2) g/dL Albumin (3.5-5.0) g/dL 12/26/22 12/26/22 12/26/22 Range/Units 05:29 05:56 06:13 WBC (3.8-10.6) k/uL Hct (34.0-46.0) % MCHC (31.0-37.0) g/dL Neutrophils # (1.3-7.7) k/uL Neutrophils # (Manual) (1.3-7.7) k/uL Lymphocytes # (1.0-4.8) k/uL Monocytes # (0-1.0) k/uL APTT (22.0-30.0) sec ABG pH 7.18 L* (7.35-7.45) ABG pCO2 (35-45) mmHg ABG pO2 145 H (83-108) mmHg ABG HCO3 14 L (21-25) mmol/L ABG Total CO2 15 L (19-24) mmol/L ABG O2 Saturation 98.4 H (94-97) % Potassium (3.5-5.1) mmol/L Chloride (98-107) mmol/L Carbon Dioxide (22-30) mmol/L BUN (7-17) mg/dL Creatinine (0.52-1.04) mg/dL Glucose (74-99) mg/dL POC Glucose (mg/dL) (70-110) mg/dL Plasma Lactic Acid Joaquin 11.2 H* (0.7-2.0) mmol/L Calcium (8.4-10.2) mg/dL Phosphorus (2.5-4.5) mg/dL Magnesium (1.6-2.3) mg/dL Troponin I 10.500 H* (0.000-0.034) ng/mL Total Protein (6.3-8.2) g/dL Albumin (3.5-5.0) g/dL 12/26/22 12/26/22 12/26/22 Range/Units 06:53 07:01 08:17 WBC 27.5 H (3.8-10.6) k/uL Hct 46.4 H (34.0-46.0) % MCHC 29.8 L (31.0-37.0) g/dL Neutrophils # 24.5 H (1.3-7.7) k/uL Neutrophils # (Manual) (1.3-7.7) k/uL Lymphocytes # (1.0-4.8) k/uL Monocytes # 1.1 H (0-1.0) k/uL APTT (22.0-30.0) sec ABG pH 7.24 L (7.35-7.45) ABG pCO2 (35-45) mmHg ABG pO2 (83-108) mmHg ABG HCO3 17 L (21-25) mmol/L ABG Total CO2 (19-24) mmol/L ABG O2 Saturation (94-97) % Potassium (3.5-5.1) mmol/L Chloride 108 H (98-107) mmol/L Carbon Dioxide 10 L (22-30) mmol/L BUN 20 H (7-17) mg/dL Creatinine 1.21 H (0.52-1.04) mg/dL Glucose 257 H (74-99) mg/dL POC Glucose (mg/dL) (70-110) mg/dL Plasma Lactic Acid Joaquin (0.7-2.0) mmol/L Calcium (8.4-10.2) mg/dL Phosphorus (2.5-4.5) mg/dL Magnesium (1.6-2.3) mg/dL Troponin I (0.000-0.034) ng/mL Total Protein (6.3-8.2) g/dL Albumin (3.5-5.0) g/dL 12/26/22 Range/Units 09:00 WBC (3.8-10.6) k/uL Hct (34.0-46.0) % MCHC (31.0-37.0) g/dL Neutrophils # (1.3-7.7) k/uL Neutrophils # (Manual) (1.3-7.7) k/uL Lymphocytes # (1.0-4.8) k/uL Monocytes # (0-1.0) k/uL APTT (22.0-30.0) sec ABG pH (7.35-7.45) ABG pCO2 (35-45) mmHg ABG pO2 (83-108) mmHg ABG HCO3 (21-25) mmol/L ABG Total CO2 (19-24) mmol/L ABG O2 Saturation (94-97) % Potassium (3.5-5.1) mmol/L Chloride (98-107) mmol/L Carbon Dioxide (22-30) mmol/L BUN (7-17) mg/dL Creatinine (0.52-1.04) mg/dL Glucose (74-99) mg/dL POC Glucose (mg/dL) 292 H (70-110) mg/dL Plasma Lactic Acid Joaquin (0.7-2.0) mmol/L Calcium (8.4-10.2) mg/dL Phosphorus (2.5-4.5) mg/dL Magnesium (1.6-2.3) mg/dL Troponin I (0.000-0.034) ng/mL Total Protein (6.3-8.2) g/dL Albumin (3.5-5.0) g/dL
[2022-12-26 10:20] VITALS: RESP 36
[2022-12-26] MEDS ORDERED: NOREPINEPHRINE 8 MG in SODIUM CHLORIDE 0.9% 250 ML IV SCH (11:00)
--- NOTE | 2022-12-26 11:00 | XR ---
EXAMINATION TYPE: XR chest 1V DATE OF EXAM: 12/26/2022 10:39 AM CLINICAL INDICATION:Female, 62 years old with history of Central line placement; [facility] COMPARISON: Chest radiographs from 12/26/2022 TECHNIQUE: XR chest 1V Frontal view of the chest. FINDINGS: Lungs/Pleura: Similar multifocal airspace opacities. No evidence of pneumothorax or pleural effusion. Pulmonary vascularity: Unremarkable. Heart/mediastinum: Cardiomediastinal silhouette is unremarkable. Musculoskeletal: No acute osseous pathology. Other findings: None Lines/Tubes: Endotracheal tube with distal tip 2.6 cm above the eda. Nasogastric tube with its distal tip and side-port projecting under the diaphragm. IMPRESSION: 1. Right pneumothorax is confirmed from prior 2. Similar multifocal airspace opacities. 3. Stable support tubes. Findings communicated to Dr. Karen Florence MD~Vicki 12/26/2022 10:[address] Wesley Ma.
[2022-12-26] MEDS ORDERED: CISATRACURIUM 2 MG/ML 5 ML VIAL IV ONE (11:13)
[2022-12-26] MEDS ORDERED: HYDROmorphone 1 MG/ML 1 ML SYRINGE IVP PRN (11:20)
[2022-12-26 11:24] LABS: Magnesium 2.2 mg/dL (1.6-2.3); Potassium 4.9 mmol/L (3.5-5.1)
[2022-12-26 11:51] LABS: Appearance,Urine Turbid (Clear); Bilirubin,Urine Negative (Negative); Blood,Urine Large (Negative); Color,Urine Red; Glucose,Urine (UA) 1+ (Negative); Ketones,Urine 1+ (Negative); Leukocyte Esterase,Urine Small (Negative); Nitrite,Urine Negative (Negative); PH, Urine 5.5 (5.0-8.0); Protein,Urine 2+ (Negative); RBC,Urine >182 /hpf (0-5); Specific Gravity,Urine 1.034 (1.001-1.035); Urobilinogen,Urine <2.0 mg/dL (<2.0); WBC,Urine 3 /hpf (0-5)
--- NOTE | 2022-12-26 12:30 | OP ---
OPERATIVE REPORT DATE OF SERVICE : PROCEDURE PERFORMED: Placement of a right femoral triple-lumen catheter. PREOPERATIVE DIAGNOSES: Acute cardiac arrest and acute myocardial infarction. POSTOPERATIVE DIAGNOSES: Acute cardiac arrest and acute myocardial infarction. ANESTHESIA USED: 2 mL of 1% lidocaine. PROCEDURE: The right groin was prepared in a sterile fashion. Drapes were applied. The right femoral vein was easily cannulated, a guidewire was placed, and a triple-lumen catheter was inserted over the guidewire, and the guidewire was removed. Good blood flow noted in the 3 different ports of the triple-lumen catheter, line was secured using 3.0 silk sutures, no complications. MMODL / IJN: [id number] /
--- NOTE | 2022-12-26 12:31 | OP ---
OPERATIVE REPORT DATE OF SERVICE : PROCEDURE PERFORMED: Placement of a left radial arterial line. PREOPERATIVE DIAGNOSES: Acute respiratory failure, cardiac arrest, and acute myocardial infarction. POSTOPERATIVE DIAGNOSES: Acute respiratory failure, cardiac arrest, and acute myocardial infarction. ANESTHESIA USED: None deployed. DESCRIPTION OF PROCEDURE: The right wrist was prepared in a sterile fashion. Drapes were applied. The right radial artery was palpated, cannulated easily, and a guidewire was placed. A Cook catheter was inserted over the guidewire, and the guidewire was removed, good blood flow, good waveform, no complications, line was secured using 3.0 silk sutures. MMODL / IJN: [id number] /
--- NOTE | 2022-12-26 12:37 | XR ---
EXAMINATION TYPE: XR chest 1V portable DATE OF EXAM: 12/26/2022 12:24 PM CLINICAL INDICATION:Female, 62 years old with history of Post CT insertion; COMPARISON: Chest radiographs from same day. TECHNIQUE: XR chest 1V portable Frontal view of the chest. FINDINGS: Lungs/Pleura: There is no evidence of pleural effusion, focal consolidation, or pneumothorax. Pulmonary vascularity: Unremarkable. Heart/mediastinum: Cardiomediastinal silhouette is unremarkable. Musculoskeletal: No acute osseous pathology. Other findings: None Lines/Tubes: Endotracheal tube with distal tip 2.0 cm above the eda. Nasogastric tube with its distal tip and side-port projecting under the diaphragm. Right thoracotomy tube is present with evidence of pneumothorax. IMPRESSION: 1. Right thoracotomy tube with persistent pneumothorax. Mild subcutaneous emphysema. 2. Similar scattered multifocal airspace opacities. 3. Stable support tubes.
--- NOTE | 2022-12-26 12:52 | OP ---
OPERATIVE REPORT DATE OF SERVICE : PROCEDURE PERFORMED: Placement of right-sided chest tube/right-sided tube thoracostomy. PREOPERATIVE DIAGNOSIS: Right-sided pneumothorax, which is related either to chest compression or possibly related to barotrauma. POSTOPERATIVE DIAGNOSIS: Right-sided pneumothorax, which is related either to chest compression or possibly related to barotrauma. ANESTHESIA USED: The patient received 10 mg of Nimbex and local lidocaine was also used. DESCRIPTION OF PROCEDURE: The patient was placed in the supine position, the area of the right chest was prepared in a sterile fashion and drapes were applied. At the level of the 5th/6th intercostal line and anterior axillary line, the area was locally anesthetized with lidocaine. Then, a 1.0 cm incision was made at that same level, and that subcutaneous tissue was dissected using index finger and Amena forceps until the pleural space was entered. There was clearly evidence of an air gushed from the chest cavity. Then, a size 28 [place] chest tube was placed at the same site and advanced apically into the pleural space. As the tube was advanced, there was clearly evidence of air leak in the Pleur- Evac. The tube was secured using 0.0 Ethibond sutures, the dressing was applied, procedure was well tolerated, no complications, and chest x-ray showed adequate placement of the chest tube. MMODL / IJN: [id number] /
--- NOTE | 2022-12-26 13:23 | P.CNPUL ---
History of Present Illness Consult date: 12/26/22 Requesting physician: Melissa Garza Reason for consult: other (Cardiac arrest) Chief complaint: Chest discomfort History of present illness: This is a 62-year-old female presented to the emergency room with relatively acute chest discomfort. On arrival the patient had a cardiac arrest shortly after she arrived to the ER. And she went on to develop recurrent ventricular tachycardia and ventricular fibrillation. Patient required multiple shocks and prolonged CPR of at least 50 minutes. Subsequently, the patient had a pulse and rhythm, and she was noted to have ST segment elevation inferiorly. In the meantime the patient was intubated, seen by cardiology and underwent cardiac catheterization. Patient was found to have acutely occluded proximal left circumflex, chronically occluded proximal RCA moderate disease in the mid LAD and the patient underwent successful stenting of the proximal left circumflex with reduction of stenosis from 100% to 5% with intravascular ultrasound imaging. Patient was transferred to the ICU shortly after her cardiac catheterization, and she had another cardiac arrest while in the ICU and this time the down time was about 5 minutes. I saw this patient early this morning, she is intubated and mechanically ventilated. She is on assist control rate of 3612 volume 400 FiO2 100% PEEP of 12 increased to 14. Patient is maintained on vasopressin at 0.03 units per minute, she is also on amiodarone at 0.5 mg/m norepinephrine at 0.2 mcg/kg/m she is also on Aggrenox and she is empirically on Zosyn is also on propofol at 25 mcg/kg/m. Patient was noted to be acidotic, bicarb was given for low pH of 7.18 pO2 of 145 pCO2 38. Further ABGs are pen ding. Shortly after I evaluated the patient I was informed by the radiologist that the patient had evidence of right-sided pneumothorax. Patient did not have any attempts to place any central line in the right side of the chest, or neck, hence I felt the pneumothorax is most likely related to chest compression could also be related to barotrauma which is felt to be less likely. I went ahead and placed a right sided chest tube and connected to Pleur-evac./Wall suction. Air leak was continuousl. After evaluating the patient, discussed with her family at bedside condition and updated on her overall clinical picture and poor prognosis. Family would like to continue with a full CODE STATUS. Review of Systems ROS unobtainable: due to endotracheal tube Past Medical History Past Medical History: No Reported History History of Any Multi-Drug Resistant Organisms: Unobtainable Past Surgical History: Hysterectomy, Tonsillectomy Past Anesthesia/Blood Transfusion Reactions: Unable to Obtain Past Psychological History: No Psychological Hx Reported Smoking Status: Former smoker Past Alcohol Use History: None Reported Past Drug Use History: None Reported Medications and Allergies Home Medications Medication Instructions Recorded Confirmed Type No Known Home Medications 12/26/22 12/26/22 History Allergies Allergy/AdvReac Type Severity Reaction Status Date / Time Unable to Assess Allergy Verified 12/26/22 00:31 Physical Exam Vitals: Vital Signs Temp Pulse Resp BP BP Pulse Ox FiO2 12/26/22 12:15 99.0 F 121 H 36 H 95 12/26/22 12:01 80 12/26/22 12:00 117 H 0 L 95 100 12/26/22 11:45 115 H 36 H 96 12/26/22 11:30 112 H 36 H 98 12/26/22 11:15 118 H 36 H 96 12/26/22 11:00 117 H 36 H 96 12/26/22 10:45 116 H 36 H 96 12/26/22 10:30 113 H 36 H 97 12/26/22 10:15 111 H 36 H 96 12/26/22 10:00 107 H 36 H 108/47 96 12/26/22 09:45 105 H 36 H 108/47 97 12/26/22 09:30 96 36 H 108/47 12/26/22 09:15 98 36 H 124/39 94 L 12/26/22 09:00 98 3 L 124/39 97 12/26/22 08:50 98 9 L 124/39 96 12/26/22 08:40 98 36 H 107/64 97 12/26/22 08:36 90 12/26/22 08:30 92 36 H 101/80 12/26/22 08:20 90 36 H 101/80 95 12/26/22 08:10 85 36 H 115/76 95 12/26/22 08:00 99.3 F 79 36 H 108/61 38 L 100 12/26/22 07:50 80 23 108/61 97 12/26/22 07:40 84 28 H 116/60 97 12/26/22 07:30 86 24 134/83 96 12/26/22 07:20 90 28 H 134/83 96 12/26/22 07:10 76 36 H 89/46 96 12/26/22 07:00 61 21 92/46 12/26/22 06:50 69 25 H 92/46 96 12/26/22 06:40 73 37 H 88/51 97 12/26/22 06:30 62 23 103/50 12/26/22 06:20 70 24 103/50 96 12/26/22 06:10 60 39 H 107/79 95 12/26/22 06:00 89 35 H 88/60 96 12/26/22 05:50 86 26 H 88/60 97 12/26/22 05:40 62 24 105/61 96 12/26/22 05:30 85 36 H 104/55 12/26/22 05:20 64 36 H 104/55 97 12/26/22 05:10 66 38 H 111/48 97 12/26/22 05:00 91 35 H 86/27 12/26/22 04:50 64 35 H 82/43 95 12/26/22 04:40 69 36 H 83/66 95 12/26/22 04:30 69 48 H 86/50 12/26/22 04:20 70 36 H 86/50 92 L 12/26/22 04:10 71 56 H 91/69 92 L 12/26/22 04:00 98.3 F 70 34 H 87/56 90 L 100 12/26/22 03:50 70 57 H 87/56 90 L 12/26/22 03:43 100 12/26/22 03:40 69 45 H 85/54 91 L 12/26/22 03:30 69 36 H 68/22 91 L 12/26/22 03:20 71 31 H 74/27 12/26/22 03:10 75 49 H 81/47 88 L 12/26/22 03:00 98.3 F 75 26 H 87/59 89 L 100 12/26/22 02:57 74 43 H 88 L 12/26/22 02:52 85/50 12/26/22 02:49 81/33 12/26/22 02:42 84/36 12/26/22 02:39 47/25 12/26/22 02:34 93/46 12/26/22 00:32 100 12/26/22 00:30 100 12/25/22 23:46 102 H 18 140/71 97 Intake and Output 12/25/22 12/26/22 12/26/22 23:59 06:59 14:59 Intake Total 288.121 Output Total 185 Balance 103.121 Intake: IV Potassium Chloride 10 meq In Water For Injection 1 100ml.bag @ 100 mls/hr IVPB Q1HR [facility] Rx#: [id number] Sodium Chloride 0.9% 1, 000 ml @ 999 mls/hr IV . Q1H1M STA Rx#:[id number] Intake, IV Titration 288.121 Amount Norepinephrine 4 mg In 184.007 Sodium Chloride 0.9% 250 ml @ 0.03 MCG/KG/MIN 9. 332 mls/hr IV .Q24H [facility] Rx#:[id number] Vasopressin 20 unit In 21.65 Sodium Chloride 0.9% 50 ml @ 0.03 UNITS/MIN 4.59 mls/hr IV .Q11H7M [facility] Rx# :[id number] propofoL 1,000 mg In 82.464 Empty Bag 1 bag @ 15 MCG/ KG/MIN 7.348 mls/hr IV . [id number] [facility] Rx#:[id number] Output: Urine 185 Other: Voiding Method Indwelling Catheter Weight ABP, PAP, CO, CI - Last 8 Hours Arterial Blood Pressure 78/56 Arterial Blood Pressure 86/54 Arterial Blood Pressure 83/58 Arterial Blood Pressure 80/56 Arterial Blood Pressure 91/62 Arterial Blood Pressure 85/61 Arterial Blood Pressure 95/63 Arterial Blood Pressure 104/64 Arterial Blood Pressure 87/63 Arterial Blood Pressure 81/60 Arterial Blood Pressure 83/60 Arterial Blood Pressure 83/57 Arterial Blood Pressure 79/54 Arterial Blood Pressure 98/59 Arterial Blood Pressure 93/55 Arterial Blood Pressure 110/58 Arterial Blood Pressure 87/50 Arterial Blood Pressure 89/45 Arterial Blood Pressure 100/41 Physical Exam: Revealed 62-year-old female obese, intubated and mechanically ventilated. Head: Atraumatic normocephalic, endotracheal tube and orogastric tube are intact. HEENT:[Neck is supple.] [No neck masses.] [No thyromegaly.] [No JVD.] Pupils are equally reactive to light and accommodations. Dry mucous membranes. Chest: [Crackles and rhonchi noted bilaterally. Cardiac Exam: [Normal S1 and S2, no S3 gallop, no murmur.] Abdomen: [Soft, nontender, no megaly, no rebound, no guarding, normal bowel sounds.] Extremities: [No clubbing, 1+ bipedal edema, no cyanosis.] Neurological Exam: Not assessed, patient is sedated on propofol. Psychiatric: Could not be assessed, patient is sedated on propofol. Zulma: No rashes. Results - Laboratory Findings CBC and BMP: 12/26/22 07:01 12/26/22 10:55 ABG ABG pH 7.24 (7.35-7.45) L 12/26/22 08:17 ABG pCO2 40 mmHg (35-45) 12/26/22 08:17 ABG pO2 103 mmHg (83-108) 12/26/22 08:17 ABG O2 Saturation 97.0 % (94-97) 12/26/22 08:17 PT/INR, D-dimer PT 11.8 sec (10.0-12.5) 12/26/22 00:33 INR 1.1 (<1.2) 12/26/22 00:33 Abnormal lab findings: Abnormal Labs 12/25/22 12/26/22 12/26/22 23:59 00:33 00:33 WBC 12.1 H Hct MCHC 29.7 L Neutrophils # Neutrophils # (Manual) Lymphocytes # 4.9 H Monocytes # APTT ABG pH ABG pCO2 ABG pO2 ABG HCO3 ABG Total CO2 ABG O2 Saturation Potassium 2.6 L* Chloride Carbon Dioxide 15 L BUN Creatinine Glucose 348 H POC Glucose (mg/dL) 219 H Plasma Lactic Acid Joaquin Calcium 10.9 H Phosphorus 9.1 H* Magnesium 3.3 H Troponin I Total Protein 4.7 L Albumin 2.6 L Urine Appearance Urine Protein Urine Glucose (UA) Urine Ketones Urine Blood Ur Leukocyte Esterase Urine RBC 12/26/22 12/26/22 12/26/22 00:33 00:33 01:00 EST WBC Hct MCHC Neutrophils # Neutrophils # (Manual) Lymphocytes # Monocytes # APTT ABG pH 6.95 L* ABG pCO2 75 H* ABG pO2 55 L* ABG HCO3 16 L ABG Total CO2 ABG O2 Saturation 67.0 L Potassium Chloride Carbon Dioxide BUN Creatinine Glucose POC Glucose (mg/dL) Plasma Lactic Acid Joaquin 11.2 H* Calcium Phosphorus Magnesium Troponin I 0.318 H* Total Protein Albumin Urine Appearance Urine Protein Urine Glucose (UA) Urine Ketones Urine Blood Ur Leukocyte Esterase Urine RBC 12/26/22 12/26/22 12/26/22 02:04 02:42 02:42 WBC Hct MCHC Neutrophils # Neutrophils # (Manual) Lymphocytes # Monocytes # APTT 73.0 H ABG pH ABG pCO2 ABG pO2 ABG HCO3 ABG Total CO2 ABG O2 Saturation Potassium Chloride Carbon Dioxide BUN Creatinine Glucose POC Glucose (mg/dL) 310 H Plasma Lactic Acid Joaquin Calcium Phosphorus Magnesium Troponin I 10.300 H* Total Protein Albumin Urine Appearance Urine Protein Urine Glucose (UA) Urine Ketones Urine Blood Ur Leukocyte Esterase Urine RBC 12/26/22 12/26/22 12/26/22 02:42 02:42 02:42 WBC 29.3 H Hct MCHC 30.1 L Neutrophils # Neutrophils # (Manual) 25.70 H Lymphocytes # Monocytes # APTT ABG pH ABG pCO2 ABG pO2 ABG HCO3 ABG Total CO2 ABG O2 Saturation Potassium 3.3 L Chloride Carbon Dioxide 14 L BUN Creatinine Glucose 297 H POC Glucose (mg/dL) Plasma Lactic Acid Joaquin 11.9 H* Calcium Phosphorus Magnesium Troponin I Total Protein Albumin Urine Appearance Urine Protein Urine Glucose (UA) Urine Ketones Urine Blood Ur Leukocyte Esterase Urine RBC 12/26/22 12/26/22 12/26/22 05:29 05:56 06:13 WBC Hct MCHC Neutrophils # Neutrophils # (Manual) Lymphocytes # Monocytes # APTT ABG pH 7.18 L* ABG pCO2 ABG pO2 145 H ABG HCO3 14 L ABG Total CO2 15 L ABG O2 Saturation 98.4 H Potassium Chloride Carbon Dioxide BUN Creatinine Glucose POC Glucose (mg/dL) Plasma Lactic Acid Joaquin 11.2 H* Calcium Phosphorus Magnesium Troponin I 10.500 H* Total Protein Albumin Urine Appearance Urine Protein Urine Glucose (UA) Urine Ketones Urine Blood Ur Leukocyte Esterase Urine RBC 12/26/22 12/26/22 12/26/22 06:53 07:01 08:17 WBC 27.5 H Hct 46.4 H MCHC 29.8 L Neutrophils # 24.5 H Neutrophils # (Manual) Lymphocytes # Monocytes # 1.1 H APTT ABG pH 7.24 L ABG pCO2 ABG pO2 ABG HCO3 17 L ABG Total CO2 ABG O2 Saturation Potassium Chloride 108 H Carbon Dioxide 10 L BUN 20 H Creatinine 1.21 H Glucose 257 H POC Glucose (mg/dL) Plasma Lactic Acid Joaquin Calcium Phosphorus Magnesium Troponin I Total Protein Albumin Urine Appearance Urine Protein Urine Glucose (UA) Urine Ketones Urine Blood Ur Leukocyte Esterase Urine RBC 12/26/22 12/26/22 12/26/22 09:00 09:36 10:55 WBC Hct MCHC Neutrophils # Neutrophils # (Manual) Lymphocytes # Monocytes # APTT ABG pH ABG pCO2 ABG pO2 ABG HCO3 ABG Total CO2 ABG O2 Saturation Potassium Chloride Carbon Dioxide BUN Creatinine Glucose POC Glucose (mg/dL) 292 H Plasma Lactic Acid Joaquin 11.1 H* Calcium Phosphorus Magnesium Troponin I Total Protein Albumin Urine Appearance Turbid H Urine Protein 2+ H Urine Glucose (UA) 1+ H Urine Ketones 1+ H Urine Blood Large H Ur Leukocyte Esterase Small H Urine RBC >182 H - Diagnostic Findings Chest x-ray: image reviewed (Multiple x-rays of the chest were reviewed her most recent chest x-ray done after right-sided chest tube placement showed evidence of pulmonary edema, adequate placement of the right-sided chest tube small right apical pneumothorax and endotracheal tube is 2.5 cm above the eda be orogastric tube ) Assessment and Plan Assessment: Impression: Acute inferior wall ST elevation myocardial infarction Cardiac arrest requiring prolonged CPR with recurrent ventricular tachycardia and ventricular fibrillation requiring multiple shocks/cardioversion Acute hypoxic respiratory failure secondary to cardiac arrest and pulmonary edema Acute right sided pneumothorax most likely secondary to chest compress ions/prolonged CPR requiring chest tube placement since the patient is on mechanical ventilation Acute kidney injury History of tobacco use. Possible aspiration pneumonia Severe lactic acidosis mostly secondary to hypoperfusion and I believe is mostly cardiogenic in nature, strongly doubt sepsis. Recommendation: Continue ventilatory support Continue hemodynamic support with norepinephrine and vasopressin Continue amiodarone Continue Aggrenox as per cardiology Continue propofol Continue Zosyn empirically chest tube to wall suction Continue intermittent dosing with bicarb for metabolic acidosis may consider a bicarb drip Continue GI and DVT prophylaxis Address nutritional support and enteral feeding in the next 24 hours Discussed and updated the family on her overall condition Made aware that the patient is critically ill CODE STATUS remains full We will continue to follow. Critical care time is over 1 hour not including the time spent on procedures Time with Patient: Greater than 30
[2022-12-26 13:30] LABS: Magnesium 2.4 mg/dL (1.6-2.3)
[2022-12-26 13:37] LABS: Phosphorus 10.1 mg/dL (2.5-4.5)
[2022-12-26 14:26] LABS: ABG Base Excess -15.6 mmol/L; ABG HCO3 13 mmol/L (21-25); ABG Oxygen Saturation 96.7 % (94-97); ABG PCO2 39 mmHg (35-45); ABG PO2 108 mmHg (83-108); ABG TCO2 15 mmol/L (19-24); Allen Test Performed? Yes
[2022-12-26 14:29] LABS: ABG PH 7.14 (7.35-7.45)
[2022-12-26] MEDS ORDERED: DOBUTamine DRIP 500 MG in DEXTROSE/WATER 1 250ML.BAG IV SCH (14:30)
[2022-12-26 14:41] VITALS: BP 99/58
[2022-12-26 14:59] LABS: HCT 36.8 % (34.0-46.0); Hypochromasia Slight; MCH 28.5 pg (25.0-35.0); MCHC 32.5 g/dL (31.0-37.0); Mean Platelet Volume 8.7; Platelet Count 293 k/uL (150-450); RDW 13.2 % (11.5-15.5); WBC 20.5 k/uL (3.8-10.6)
[2022-12-26 15:05] LABS: MCV 87.6 fL (80.0-100.0)
[2022-12-26] MEDS ORDERED: AMIODARONE 360 MG in DEXTROSE 5% IN WATER 200 ML IV SCH ×2 (15:15)
[2022-12-26] MEDS ORDERED: DEXTROSE 5% IN WATER 1,000 ML with SODIUM BICARB (1 MEQ/ML) 150 ML IV SCH (15:30)
[2022-12-26 16:46] VITALS: TEMP 98.8
[2022-12-26] MEDS ORDERED: ATROPINE OPHTH SOLN 1% 5ML BTL SUBLINGUAL PRN (17:59)
[2022-12-26] MEDS ORDERED: LORazepam 2 MG/ML INJ IV PRN (17:59)
[2022-12-26] MEDS ORDERED: SCOPOLAMINE 1 MG/72 HR PATCH TRANSDERM SCH (18:00)
[2022-12-26] MEDS ORDERED: MORPHINE SULFATE (100 MG/2 ML) 100 MG in SODIUM CHLORIDE 0.9% 100 ML IV SCH (18:00)
[2022-12-26 18:32] VITALS: PULSE 154
[2022-12-27] MEDS ORDERED: ASPIRIN 325 MG TAB PO SCH (09:00)
[2022-12-27] MEDS ORDERED: PRASUGREL 10 MG TAB PO SCH (09:00)
== END 2022-12-26 21:39 | disposition expired | DRG 321 ==
LOC: EC 23:44 → 2SICU 12-26 00:25
PROVIDERS: ADMIT Hospitalist; ATTEND Hospitalist
PROC: 5A1935Z Respiratory Ventilation, Less than 24 Consecutive Hours (ICD-10-PCS; 2022-12-25)
PROC: 0BH17EZ Insertion of Endotracheal Airway into Trachea, Via Natural or Artificial Opening (ICD-10-PCS; 2022-12-25)
PROC: 3E043XZ Introduction of Vasopressor into Central Vein, Percutaneous Approach (ICD-10-PCS; 2022-12-26)
PROC: 5A12012 Performance of Cardiac Output, Single, Manual (ICD-10-PCS; 2022-12-26)
PROC: 4A133J1 Monitoring of Arterial Pulse, Peripheral, Percutaneous Approach (ICD-10-PCS; 2022-12-26)
PROC: 03HY32Z Insertion of Monitoring Device into Upper Artery, Percutaneous Approach (ICD-10-PCS; 2022-12-26)
PROC: 4A133B1 Monitoring of Arterial Pressure, Peripheral, Percutaneous Approach (ICD-10-PCS; 2022-12-26)
PROC: 06HY33Z Insertion of Infusion Device into Lower Vein, Percutaneous Approach (ICD-10-PCS; 2022-12-26)
PROC: 027037Z Dilation of Coronary Artery, One Artery with Four or More Drug-eluting Intraluminal Devices, Percutaneous Approach (ICD-10-PCS; principal; 2022-12-26 00:43)
PROC: B2111ZZ Fluoroscopy of Multiple Coronary Arteries using Low Osmolar Contrast (ICD-10-PCS; principal; 2022-12-26 00:43)
PROC: B240ZZ3 Ultrasonography of Single Coronary Artery, Intravascular (ICD-10-PCS; principal; 2022-12-26 00:43)
PROC: 4A023N7 Measurement of Cardiac Sampling and Pressure, Left Heart, Percutaneous Approach (ICD-10-PCS; principal; 2022-12-26 00:43)
PROC: 0W9930Z Drainage of Right Pleural Cavity with Drainage Device, Percutaneous Approach (ICD-10-PCS; 2022-12-26 00:43)
DX: I21.19 ST elevation (STEMI) myocardial infarction involving other coronary artery of inferior wall (principal); I50.21 Acute systolic (congestive) heart failure; N17.0 Acute kidney failure with tubular necrosis; J96.01 Acute respiratory failure with hypoxia; J69.0 Pneumonitis due to inhalation of food and vomit; E87.4 Mixed disorder of acid-base balance; I47.20 Ventricular tachycardia, unspecified; J93.82 Other air leak; J93.9 Pneumothorax, unspecified; J93.83 Other pneumothorax; T82.867A Thrombosis due to cardiac prosthetic devices, implants and grafts, initial encounter; G93.1 Anoxic brain damage, not elsewhere classified; I49.01 Ventricular fibrillation; E66.9 Obesity, unspecified; I46.2 Cardiac arrest due to underlying cardiac condition; R57.0 Cardiogenic shock; Z66 Do not resuscitate; Z51.5 Encounter for palliative care; I48.91 Unspecified atrial fibrillation; E87.6 Hypokalemia; Z87.891 Personal history of nicotine dependence; D72.829 Elevated white blood cell count, unspecified; Z28.21 Immunization not carried out because of patient refusal; Z68.28 Body mass index [BMI] 28.0-28.9, adult
CPT/HCPCS: 36415; 36600; 71045; 80048; 80053; 81001; 82805; 83605; 83735; 83880; 84100; 84132; 84484; 85025; 85027; 85610; 85730; 87040; 92941; 92950; 92978; 93458; 94002; 96361; 96374; 96375; 99291